=== PATIENT | female | born 1950 | race Caucasian/White ===

== ENCOUNTER → 2020-06-28 13:18 | Outpatient (CLI) | payer MEDICARE, SELFPAY ==
--- NOTE | 2020-06-28 13:23 | MRI_ITS ---
STUDY: MRI BRAIN WITHOUT CONTRAST REASON FOR EXAM: Female, 70 years old patient with homonymous hemianopsia suggesting acute stroke TECHNIQUE: Standardized multiplanar fat and water weighted pulse sequences were obtained. COMPARISON: CT brain dated 07/17/2006. FINDINGS: There is mild cerebral atrophy with widening of the extra-axial spaces and ventricular dilatation. There is extensive encephalomalacia in left temporal lobe and left occipital lobe are probably secondary to previous surgery. This is unchanged since the previous CT. There are a limited number of small white matter hyperintensities, distributed throughout the deep white matter tracts of the cerebral hemispheres, consistent with mild chronic white matter ischemic changes. There is confluent periventricular hyperintensity cloaking the lateral ventricles, consistent with periventricular leukoaraiosis. There is no evidence for recent intracranial ischemia or other cause of cytotoxic edema on diffusion weighted imaging (DWI). Normal T2* images of the brain without demonstrated susceptibility artifact. There is no demonstrated hemosiderin stain. There are prominent perivascular spaces (PVS) involving the basal ganglia. Normal thalami. There is no extra-axial fluid accumulation. Normal flow voids within the major intracranial circulation suggesting patency by spin echo criteria. Normal sella turcica, pituitary gland, infundibular stalk, optic chiasm and hypothalamus. Normal tectal plate and pineal gland. Normal midbrain, pedro and medulla. There are moderately severe with additional changes of the cerebellum. There are large basal cisterns. There is abnormal signal within the mastoid suggesting bilateral mastoid effusions. Normal bilateral internal auditory canals. There is an ocular lens implant the left globe. Normal right globe. The intraorbital contents otherwise are normal. There is mild mucosal thickening in the ethmoid sinuses. Patient has had a left-sided pterional craniotomy. Normal visualized soft tissue structures. Normal visualized upper cervical spine. MRI/Brain without Contrast IMPRESSION: 1. Involutional changes of the brain, as described above. 2. Sequela of old left temporal and occipital lobe surgical resection. Electronically Signed: Monica Gibson MD at 17:52 EDT , Service support ,
== END ==
PROVIDERS: PCP Internal Medicine; Referring Provider Internal Medicine; Visit Provider Internal Medicine
DX: H53.461 Homonymous bilateral field defects, right side (principal)
CPT/HCPCS: 70551